=== PATIENT | female | born 1975 | race Caucasian/White ===

== ENCOUNTER 2023-09-13 05:55 | Day surgery (SDC) | payer OTHER ==
[~2023-09-13] VITALS: Ht 152.4 cm; Wt 61.2 kg
[2023-09-13] MEDS ORDERED: CEFAZOLIN SOD 2 GM in D5W 50 ML IV ONE (07:00)
[2023-09-13 07:36] LABS: HCG,QUAL RESULT NEGATIVE (NEGATIVE)
[2023-09-13] MEDS ORDERED: BUPIVACAINE /PF 0.25% 30 ML VIAL INJ ONE (07:39)
[2023-09-13] MEDS ORDERED: NS 100 ML BAG ONE (07:39)
[2023-09-13] MEDS ORDERED: ROCURONIUM BROMIDE 10 MG/ML (ZEMURON) ONE (07:39)
[2023-09-13] MEDS ORDERED: IOHEXOL 300 mgI/mL, 50 mL INFUS..BTL IV ONE (07:39)
[2023-09-13] MEDS ORDERED: PROPOFOL 200MG/ 20ML VIAL (DIPRIVAN) IV ONE (07:39)
[2023-09-13] MEDS ORDERED: KETOROLAC TROMETHAMINE 30 MG VIAL ONE (07:39)
[2023-09-13] MEDS ORDERED: SUGAMMADEX SODIUM 200 MG/2 ML VIAL IV ONE (07:39)
[2023-09-13] MEDS ORDERED: MIDAZOLAM HCL/PF 2 MG/2 ML SYRINGE ONE (07:39)
[2023-09-13] MEDS ORDERED: ONDANSETRON HCL 4 MG/2 ML VIAL ONE (07:39)
[2023-09-13] MEDS ORDERED: WATER FOR IRRIGATION,STERILE 1,000 ML IRRIG.SOLN IR ONE (07:39)
[2023-09-13] MEDS ORDERED: ISOFLURANE 15 MIN GAS INH ONE (07:39)
[2023-09-13] MEDS ORDERED: fentaNYL CITRATE/PF 100 MCG/2 ML AMP ONE (07:39)
[2023-09-13] MEDS ORDERED: ACETAMINOPHEN I.V. 1000 MG 100 ML IV ONE (08:23)
[2023-09-13] MEDS ORDERED: METOCLOPRAMIDE HCL 10 MG/2 ML VIAL IVP PRN (08:45)
[2023-09-13] MEDS ORDERED: LR 1,000 ML IV SCH (08:45)
[2023-09-13] MEDS ORDERED: MEPERIDINE HCL/PF 25 MG/ML DISP.SYRIN IVP PRN (08:45)
[2023-09-13] MEDS ORDERED: hydrALAZINE HCL 20 MG/ML VIAL IVP PRN (08:45)
[2023-09-13] MEDS ORDERED: LABETALOL 100 MG/ 20ML VIAL IVP PRN (08:45)
[2023-09-13] MEDS ORDERED: HYDROmorphone 1 MG/ML INJ. CARTRIDGE IVP PRN ×2 (08:45)
[2023-09-13] MEDS ORDERED: HYDROcodone/ACETAMIN 5-325 MG TAB (NORCO/ VICODIN) PO PRN ×2 (09:00)
[2023-09-13] MEDS ORDERED: D5/0.45 NS 1,000 ML IV SCH (09:00)
[2023-09-13 12:26] VITALS: BP_SYST 130; PULSE 80; RESP 18; TEMP 97.7; O2SAT 99
[2023-09-13] MEDS ORDERED: hydrALAZINE HCL 20 MG/ML VIAL ONE (12:45)
== END 2023-09-13 11:41 | disposition home or self-care (01) ==
LOC: SMU 05:55 → SDS 05:55
PROVIDERS: ATTEND Colon & Rectal Surgery
DX: K80.10 Calculus of gallbladder with chronic cholecystitis without obstruction (principal); K64.8 Other hemorrhoids; G89.29 Other chronic pain; Z86.32 Personal history of gestational diabetes; Z82.49 Family history of ischemic heart disease and other diseases of the circulatory system; Z83.3 Family history of diabetes mellitus; Z80.3 Family history of malignant neoplasm of breast; Z80.49 Family history of malignant neoplasm of other genital organs; Z80.1 Family history of malignant neoplasm of trachea, bronchus and lung
CPT/HCPCS: 87081; 47563; 84703; 88304; J3490 ×2; J0690; J0360; J1885; J3465; J2405; J2704; J3010; Q9967; J7060; J0131; S2900; 76000